=== PATIENT | male | born 1955 | race Caucasian/White ===

== ENCOUNTER 2019-03-30 06:39 | Outpatient (CLI) | payer MEDICARE, MEDICAID ==
[2019-03-30] VITALS (9 sets, daily range): BP systolic 112–166; BP diastolic 64–86; Ht 188 cm; Wt 100.0 kg
[~2019-03-30] VITALS: Ht 188 cm; Wt 100.0 kg
--- NOTE | ~2019-03-30 | OP ---
PATIENT NAME: STORM WALDRON MEDICAL RECORD: [id number] :55 LOCATION:D.CAT ADMISSION DATE: SURGEON: RODNEY GALLEGOS MD DATE OF OPERATION: 03/30/2019 PROCEDURES: 1. PTCA stent LAD. 2. IFR LAD. 3. IFR left circumflex. 4. Left heart catheterization. 5. Selective coronary angiography. 6. Left ventriculogram. INDICATION: Unstable angina and coronary artery disease. PROCEDURE IN DETAIL: After informed consent was obtained and after a detailed description of the risks, benefits as well as alternative therapies, the patient elected to proceed with angiogram and angioplasty. The right radial area was prepped and draped in normal sterile fashion. Right radial artery was cannulated via modified Seldinger technique with placement of 6-Bermudian sheath. All catheters exchanged through this sheath. FINDINGS: Left ventriculogram was performed in standard 30-degree ANDRADE view, reveals good cardiac wall motion, ejection fraction estimated at 50%. SELECTIVE CORONARY ANGIOGRAPHY: 1. Left main is with no significant angiographic disease. 2. Left anterior descending has 75% stenosis throughout the mid vessel and IFR was abnormal. 3. Left circumflex has what appears to be a 70% stenosis in the proximal vessel; however, IFR was normal. 4. Right coronary artery has 95% stenosis throughout the mid and distal vessel. PTCA STENT OF THE LAD: The stent used was a 3.0 x 38 and 3.5 x 18 both Steven stents. Result was 0% residual stenosis. OVERALL IMPRESSION: Successful percutaneous transluminal coronary angioplasty stent of the left anterior descending going from 75% initial stenosis to 0% residual. PLAN: PTCA stent of the RCA in the near future. During the case, the patient went into atrial fibrillation, hence he will stay overnight due to the new onset of the atrial fibrillation for pharmacotherapy for the atrial fibrillation. TRANSINT:[id number] Voice Confirmation ID: [id number] DOCUMENT ID: [id number] RODNEY GALLEGOS MD CC: [id number] DICTATION DATE: 03/30/19 1020 CLINIC DIRECTOR: 03/30/19 1054 [facility] [address] [place] [address]
--- NOTE | ~2019-03-30 | HEMODYNAMI ---
PATIENT:STORM WALDRON MEDICAL RECORD: [id number] : 55 LOCATION:DJUNE ADMISSION DATE: 03/30/19 Generatedon:03/30/201910:21 Patient name: STORM WALDRON Patient #: [id number] SSN: [id number] : 1955 Date of study: 03/30/2019 Page: Of Hemodynamic Procedure Report Patient Data Patient Demographics Procedure consent was obtained First Name: STORM Gender: Male Last Name: VANITA : 1955 Patient #: [id number] Age: 64 year(s) Race: SSN: [id number] Additional ID: [id number] Contact details [address]: [address] [place] [address] State: [place] City: [place] Zip code: [address] Past Medical History Performed procedures and imaging results Date Procedure Procedure Results Comments 11/20/2018 Stress testing Positive->Intermediate with SPECT MPI risk Allergies Allergen Reaction Date Comments Reported Other allergy 03/30/2019 n Admission Admission Data Admission Date: 03/30/2019 Admission Time: 6:39 Arrival Date: 03/30/2019 Arrival Time: 0:00 Admit Source: Other Insurance Payor: Medicare [facility] #: [id number] Height (in.): 72 BSA: 2.23 (m2) Height (cm.): 182.88 BMI: 30.11 (kg/m2) Weight (lbs.): 222 Weight (kg.): 100.7 Lab Results Lab Result Date: 03/30/2019 Lab Result Time: 0:00 Biochemistry Name Units Result Min Max BUN mg/dl 22 --(----)-* 7 18 Creatinine mg/dl 1.8 --(----)-* 0.6 1.3 eGFR ml/min 40 *-(----)-- 90 120 NONAFRICAN CBC Name Units Result Min Max Hematocrit % 39.1 -*(----)-- 42 54 Hemoglobin g/dl 13 -*(----)-- 13.5 17.5 Procedure Procedure Types Cath Procedure Diagnostic Procedure [facility] w/Coronaries FFR/IVUS FFR Initial FFR Additional Sedation Charges Moderate Sedation up to 30 minutes PCI Procedure Coronary Stent Coronary Stent Initial Hemochron ACT Test Procedure Description Procedure Date Procedure Date: 03/30/2019 Procedure Start Time: 9:47 Procedure End Time: 10:19 Procedure Staff Name Function Aldo Barker MD Performing Physician Meagan Murphy RT Monitor Vilma Reyes RT Monitor Abelino Joshi RN Nurse Doris Davey RT Scrub Procedure Data Cath Procedure Fluoroscopy Diagnostic fluoroscopy Total fluoroscopy Time: 11 time: 11 min min Diagnostic fluoroscopy Total fluoroscopy dose: dose: 1238 mGy 1238 mGy Contrast Material Contrast Material Type Amount (ml) Isovue 300 142 Entry Location Entry Primary Successful Side Size Upsize Upsize Entry Closure [place]on ccessful Closure Location (Fr) 1 (Fr) 2 (Fr) Remarks Device Remarks Radial Right 6 Fr Mechanical artery Short Compression Estimated blood loss: 10 ml Diagnostic catheters Device Type Used For End Catheter Placement DIAGNOSTIC [place] 110cm 5 Procedure Fr catheter ([id number]) Procedure Complications No complications Procedure Medications Medication Administration Route Dosage 0.9% NaCl I.V. 100 ml/hr Oxygen etCO2 Nasal cannula 2 l/min Heparin Flush Bag added to field 2 bags (1000units/500ml NS) Lidocaine 2% added to field 20 Radial Cocktail added to field 1 syringe (Verapamil 2mg/Nitro 400mcg/Heparin 1500units) Versed I.V. 2 mg Fentanyl I.V. 100 mcg Radial Cocktail I.A. 1 syringe (Verapamil 2mg/Nitro 400mcg/Heparin 1500units) Versed I.V. 1 mg Lopressor I.V. 5 mg Heparin Bolus I.V. 4000 units Integrilin (Bolus I.V. 9 ml 2mg/ml) Integrilin (Bolus wasted 1 ml 2mg/ml) Plavix P.O. 600 mg Hemodynamics Rest BSA: 2.23 (m2) HGB: 13 (g/dl) O2 Consumption: Estimated: 256.66 (ml/min) O2 Cons umption indexed: Estimated:115.09 (ml/min/m) Heart Rate: 66 (bpm) Snapshots Pre Cath Intra NCS Post Cath Vital Signs Time Heart Resp SPO2 etCO2 NIBP (mmHg) Rhythm Pain Sedation Rate (ipm) (%) (mmHg) Status Level (bpm) 9:23:36 65 18 96 0 150/92(109) NSR 0 (11) 10(A) , No pain 9:27:54 62 18 95 29.3 139/86(101) NSR 0 (11) 10(A) , No pain 9:32:10 63 19 94 30 147/83(119) NSR 0 (11) 10(A) , No pain 9:36:28 63 20 95 13.5 151/91(121) NSR 0 (11) 10(A) , No pain 9:40:45 61 18 93 27.8 138/90(118) NSR 0 (11) 10(A) , No pain 9:45:03 62 19 93 32.3 127/79(110) NSR 0 (11) 10(A) , No pain 9:49:15 64 19 92 34.5 141/80(107) NSR 0 (11) 10(A) , No pain 9:53:24 105 20 90 33 102/77(97) A-Fib 0 (11) 9(A) , No pain 9:57:30 96 19 89 30.1 114/71(89) A-Fib 0 (11) 9(A) , No pain 10:01:38 87 21 91 27.8 113/77(94) A-Fib 0 (11) 9(A) , No pain 10:05:48 94 19 91 30.1 109/72(93) A-Fib 0 (11) 9(A) , No pain 10:09:56 94 21 92 28.6 129/73(99) A-Fib 0 (11) 10(A) , No pain 10:14:10 105 23 93 26.3 105/78(99) A-Fib 0 (11) 10(A) , No pain 10:18:14 101 22 92 22.5 115/81(101) A-Fib 0 (11) 10(A) , No pain Medications Time Medication Route Dose Verified Delivered Reason Not es Effectiveness by by 9:22:21 0.9% NaCl I.V. 100 Abelino Abelino Per physician ml/hr Adi Joshi RN RN 9:22:31 Oxygen etCO2 2 l/min Abelino Abelino for low 02 sats Nasal Adi Joshi cannula RN RN 9:22:43 Heparin Flush added 2 bags Abelino Abelino used for Bag to Adi Joshi procedure (1000units/500ml field RN RN NS) 9:22:53 Lidocaine 2% added 20ml Abelino Abelino for local to vial Lorigan Lorigan anesthetic field RN RN 9:23:04 Radial Cocktail added 1 Abelino Abelino used for (Verapamil to syringe Lorigan Lorigan procedure 2mg/Nitro field RN RN 400mcg/Heparin 1500units) 9:45:53 Versed I.V. 2 mg Abelino Abelino for sedation Adi Joshi RN RN 9:46:02 Fentanyl I.V. 100 mcg Abelino Abelino for sedation Adi Joshi RN RN 9:48:58 Radial Cocktail I.A. 1 Abelino Aldo for (Verapamil syringe Lorigan Tauth MD vasodilation 2mg/Nitro RN 400mcg/Heparin 1500units) 9:49:07 Versed I.V. 1 mg Abelino Abelino for sedation Adi Joshi RN RN 9:51:48 Lopressor I.V. 5 mg Abelino Abelino for arrhythmia Adi Joshi RN RN 10:01:01 Heparin Bolus I.V. 4000 Abelino Abelino for units Adi Joshi anticoagulation RN RN 10:01:17 Integrilin I.V. 9 ml Abelino Abelino for (Bolus 2mg/ml) Adi Joshi antiplatelet RN RN therapy 10:01:28 Integrilin wasted 1 ml Abelino Abelino to sharp's (Bolus 2mg/ml) Adi Joshi RN RN 10:15:31 Plavix P.O. 600 mg Abelino Abelino for Adi Joshi antiplatelet RN RN therapy Procedure Log Time Note 8:55:58 Informed consent obtained and on chart 9:03:39 Arrival Date: 03/30/2019 12:00:00 AM 9:03:45 Insurance Payor : Medicare 9:04:00 Admit Source: Other 9:04:11 Patient Height : 72 inches 9:04:25 Patient Weight : 222 lbs 9:09:08 Abelino Joshi RN sent for patient. Start room use. 9:11:45 Lab Result : Hematocrit 39.1 % 9:11:45 Lab Result : eGFR NONAFRICAN 40 ml/min 9:11:45 Lab Result : BUN 22 mg/dl 9:11:45 Lab Result : Creatinine 1.8 mg/dl 9::45 Lab Result : Hemoglobin 13 g/dl 9:12:37 Patient allergic to Other allergypcn 9:13:14 Diagnostic Cath Status : Elective 9:15:05 Procedure Status Elective Heart Cath (OP). 9:15:12 Time tracking: Regular hours (M-F 7:00 - 5:00) 9:15:20 Plan of Care:Hemodynamics will remain stable., Cardiac rhythm will remain stable., Comfort level will be maintained., Respiratory function will remain adequate., Patient/ family verbilizes understanding of procedure., Procedure tolerated without complication., Recovers from procedure without complications.. 9:15:30 Patient received from Pre/Post Procedure Room to CCL 1 Alert and oriented. Tansferred to table in Supine position. 9:16:00 Warm blankets applied, and michael hugger turned on for patient comfort. 9:16:00 Correct patient and procedure confirmed by team. 9:16:02 ECG and BP/O2 sat monitors applied to patient. 9:16:14 ACC Patient presents with Stable Angina CCS Anginal Class 2--Slight limitation of ordinary activity. 9:17:03 ACCPatient has been prescribed/administered the following anti-anginal medication within the last 2 weeks: Beta Pretty, Calcium Channel Blockers 9:22:21 0.9% NaCl 100 ml/hr I.V. was administered by Abelino Joshi RN; Per physician; Verbal order read back and verified. 9:22:28 Vital chart was started 9::31 Oxygen 2 l/min etCO2 Nasal cannula was administered by Abelino Joshi RN; for low 02 sats; Verbal order read back and verified. 9:22:31 Baseline sample Acquired. 9:22:39 Rhythm: sinus rhythm 9:22:41 Full Disclosure recording started 9::43 Heparin Flush Bag (1000units/500ml NS) 2 bags added to field was administered by Abelino Joshi RN; used for procedure; Verbal order read back and verified. 9::43 - 9:22:49 H&P Date Dictated: 03/30/2019 H&P Addendum completed by physician on day of procedure. (MUST COMPLETE FOR ALL OUTPATIENTS), New H&P dictated by physician.. 9:22:51 Pre-procedure instructions explained to patient. 9:22:52 Pre-op teaching completed and patient verbalized understanding. 9::53 Lidocaine 2% 20ml vial added to field was administered by Abelino Joshi RN; for local anesthetic; Verbal order read back and verified. 9:22:56 Family in patients room. 9:22:59 Patient NPO since Midnight. 9:23:04 Radial Cocktail (Verapamil 2mg/Nitro 400mcg/Heparin 1500units) 1 syring e added to field was administered by Abelino Joshi RN; used for procedure; Verbal order read back and verified. 9:23:07 Is the patient allergic to Iodine/contrast media? No. 9:23:08 Was the patient premedicated? Yes 9:23:14 Is patient on blood thinner?No 9:23:20 Patient diabetic? No. 9:23:25 ----Pre-sedation anethsthesia assessment.---- 9:23:30 Previous problem with sedation/anesthesia? No ? 9:23:32 Snore? Yes 9:23:36 Sleep apnea? No 9:23:39 Deviated septum? No 9:23:50 Opens mouth fully? Yes 9:23:52 Sticks out tongue? Yes 9:26:08 Airway obstruction? Yes COPD/ 2 LITERS O2 AT HOME 9:26:13 Pre procedure: right dorsailis pedis pulse 2+ Normal; easily identifiable; not easily obliterated 9:26:16 Patient pain scale 0/10 ?. 9:26:22 IV patent on arrival in left hand with 0.9% NaCl at [facility]. 9:26:26 Lab results completed and on chart. 9::52 Stress Test: yes; abnormal INFERIOR 9:26:56 Right Radial & Right Groin area was prepped with chlora-prep and draped in sterile fashion 9::57 Alarms reviewed by R. N. 9::57 Sharps counted by scrub and verified by R.N. 9:29:16 Risk of Mortality: 0.1 9:29:21 Risk of blood transfusion: 0.2 9:29:26 Risk of STEFAN: 2.0 9:29:43 Use device set Radial Dx or PCI 9:29:45 ACIST Syringe (33956) opened to sterile field. 9:29:46 Medline Cath Pack ([id number]) opened to sterile field. 9:29:47 Bag Decanter (2002) opened to sterile field. 9:29:48 ACIST Hand Control (68388) opened to sterile field. 9:29:49 ACIST Manifold (82486) opened to sterile field. 9:29:50 Tegaderm 4 x 4 (1626W) opened to sterile field. 9:29:50 MBrace Wrist Support ([id number]) opened to sterile field. 9:29:53 EMERALD Guide Wire (677-159) opened to sterile field. 9:29:54 SHEATH 6FR RAIN (4131267) opened to sterile field. 9:34:07 Zero performed for pressure channel P1 9:34:31 Physician paged 9:40:07 Physician responded to page. 9:44:22 Physician arrived 9:44:24 --------ALL STOP TIME OUT------ 9:44:26 Final Timeout: patient, procedure, and site verified with staff and physician. All members of the team are in agreement. 9:44:33 Right Radial & Right Groin site verified by team. 9:44:41 Fire Safety Assessment: A--An alcohol-based skin anteseptic being used preoperatively., C--Open oxygen or nitrous oxide is being used., D--An ESU, laser, or fiber-optic light is being used. 9:44:48 Physical assessment completed. ASA score P 2 - A patient with mild systemic disease as per Aldo Barker MD. 9:44:58 3b) 30-44 Moderately reduced kidney function. 9:45:07 Maximum allowable contrast dose (3.7 X eGFR X 0.75)111 ml. 9:45:15 Sedation plan: IV Moderate Sedation Medication:Versed, Fentanyl 9:45:53 Versed 2 mg I.V. was administered by Abelino Joshi RN; for sedation; Verbal order read back and verified. 9:46:02 Fentanyl 100 mcg I.V. was administered by Abelino Joshi RN; for sedation; Verbal order read back and verified. 9:46:57 Procedure started. 9:47:15 Local anesthetic to right radial artery with Lidocaine 2% by Aldo Barker MD.INITIAL ACCESS ONLY 9:48:00 A 6 Fr Short sheath was inserted into the Right Radial artery 9:48:49 A DIAGNOSTIC [place] 110cm 5 Fr catheter ([id number]) was advanced over the wire and used for Procedure. 9:48:58 Radial Cocktail (Verapamil 2mg/Nitro 400mcg/Heparin 1500units) 1 syring e I.A. was administered by Aldo Barker MD; for vasodilation; Verbal order read back and verified. 9:49:07 Versed 1 mg I.V. was administered by Abelino Joshi RN; for sedation; Verbal order read back and verified. 9:49:19 LV gram done using ANDRADE 9:50:16 EF : 55 % 9:50:19 Injector settings: Ml/sec: 5, Volume: 15, 9:50:54 LCA angiography performed. 9:51:04 Injector settings: Ml/sec: 3, Volume: 6, 9:51:48 Lopressor 5 mg I.V. was administered by Abelino Joshi RN; for arrhythmia; Verbal order read back and verified. 9:51:57 RCA angiography performed. 9:52:07 Injector settings: Ml/sec: 3, Volume: 6, 9:52:39 [place] Verrata Plus pressure wire (21342K) opened to sterile field. 9:52:40 INFLATOR Merit BasixCompak (VW8904) opened to sterile field. 9:53:20 GUIDE 6FR XBLAD 3.5 catheter ([id number]) opened to sterile field. 9:53:31 Catheter removed. 9:53:33 Proceeding to intervention. 9:53:51 6 Fr XBLAD3.5 guide catheter was inserted over the wire 9:54:07 FFR/IFR wire advanced. 9:55:36 Wire advanced across lesion. 9:59:13 mLAD lesion measured at 0.87 with IFR 9:59:25 Wire redirected to CIRC. 10:01:01 Heparin Bolus 4000 units I.V. was administered by Abelino Joshi RN; for anticoagulation; Verbal order read back and verified. 10:01:17 Integrilin (Bolus 2mg/ml) 9 ml I.V. was administered by Abelino Joshi RN; for antiplatelet therapy; Verbal order read back and verified. 10:01:28 Integrilin (Bolus 2mg/ml) 1 ml wasted was administered by Abelino Joshi RN; to sharp's; Verbal order read back and verified. 10:03:37 mCirc lesion measured at 1.02 with IFR 10:05:11 Wire removed. 10:06:06 AN Endymed 190 CM WIRE IS USED. 10:06:39 Pre PCI Site: [place] mLAD has 75% stenosis. 10:07:05 Wire advanced across lesion. 10:08:38 Place stent Inflation Number: 1 A LACEY RX 3.0 x 38 stent ([id number]) was prepped and advanced across the Mid LAD . The stent was deployed at 13 LEIGHANN for 0:00 (min:sec) . 10:09:07 Stent catheter was removed intact over wire. 10:10:21 Place stent Inflation Number: 2 A LACEY RX 3.5 x 18 stent ([id number]) was prepped and advanced across the Mid LAD . The stent was deployed at 13 LEIGHANN for 0:00 (min:sec) . 10:10:29 Stent catheter was removed intact over wire. 10:11:17 ACT drawn and resulted at 317 seconds. (normal therapeutic range 180-24 0 seconds). 10:11:24 Wire removed. 10:11:25 Guide catheter removed. 10:11:33 Procedure ended.(Physican Out) 10:11:47 ZEPHYR REGULAR TR BAND (794066) opened to sterile field. 10:12:04 Sheath removed intact; hemostasis achieved with Mechanical Compression to the Right Radial artery. 10:12:59 Contrast amount:Isovue 300 142ml. 10:13:18 Fluoroscopy time 11.00 minutes. 10:13:23 Flurop Dose total: 1238 10:13:23 Fluoroscopy dose: 1238 mGy 10:13:29 Dose Area Product 33771 mGy/cm. 10:13:35 Maximum allowable dose exceeded? Yes. 10:13:37 Sharps counted by scrub and verified by R.N. 10:13:40 [place] band inflated with 0cc of air. 10:13:43 Insertion/operative site no bleeding no hematoma. 10:13:52 Post right radial artery:stable 10:13:54 Post Procedure Pulses reassessed and unchanged 10:14:06 Post-procedure physical assessment completed. ASA score P 2 - A patient with mild systemic disease as per Aldo Barker MD. 10:14:10 Post procedure rhythm: atrial fibrillation 10:14:35 Estimated blood loss: 10 ml 10:14:40 Post procedure instruction explained to patient.Patient verbalizes understanding. 10:14:43 Patient needs reinforcement of post procedure teaching. 10:15:31 Plavix 600 mg P.O. was administered by Abelino Joshi RN; for antiplatelet therapy; Verbal order read back and verified. 10:16:43 Procedure type changed to Cath procedure, Diagnostic procedure, LHC, C w/Coronaries, FFR/IVUS, FFR Initial, FFR Additional, Sedation Charges, Moderate Sedation up to 30 minutes, PCI procedure, Coronary Stent, Coronary Stent Initial, Hemochron ACT Test 10:16:45 Procedure and supply charges have been captured, reviewed, submitted an d are correct. 10:17:59 Procedure Complication : No complications 10:18:23 Vital chart was stopped 10:18:27 [facility] Findings: MVD- PCI performed (see procedure note) 10:18:33 Operative report dictated upon procedure completion. 10:18:34 See physician's report for complete and final results. 10:18:47 Report given to Pre/Post Procedure Room. 10:18:52 Patient transfered to Pre/Post Procedure Room with Stretcher. 10:19:36 Procedure ended. 10:19:36 Full Disclosure recording stopped 10:19:46 ACC-PCI Only Patient was given prescriptions, or instructed by Aldo Barker MD to start/continue the following medications upon discharge: Plavix 10:19:48 End room use (Document Last) Intervention Summary Intervention Notes Time ActionType Lesion and Equipment Used Action# Pressure Duration Attributes 10:08:38 Place stent Mid LAD LACEY RX 3.0 x 1 13 00:00 38 stent ([id number]) 10:10:21 Place stent Mid LAD LACEY RX 3.5 x 2 13 00:00 18 stent ([id number]) Device Usage Item Name Manufacture Quantity Catalog Hospital Part Current Minimal Lot# / Number Charge Number Stock Stock Serial# Code ACIST Syringe Acist 1 91590 533868 632825 [id number] 20 (40446) Medical Systems Inc Medline Cath Medline 1 [id number] 53164 867468 5 Pack ([id number]) Bag Decanter Microtek 1 2001S 845664 23578 774179 5 (2001S) Medical Inc. ACIST Hand Acist 1 74976 332157 947539 067025 5 Control Medical (52680) Systems Inc ACIST Manifold Acist 1 77751 025572 291266 015895 5 (29720) Medical Systems Inc Tegaderm 4 x 4 3M 1 1626W 233932 600031 212888 5 (1626W) MBrace Wrist Advanced 1 140-0250-00 950701 43904 413185 5 Support Vascular ([id number]) Dynamics EMERALD Guide Cardinal 1 502-455 566855 167710 510489 5 Wire (502455) Health SHEATH 6FR Cardinal 1 4784792 889133 8576282 549514 5 RAIN (1358104) Health DIAGNOSTIC Terumo 1 405013 500206 631614 630347 5 [place] 110cm 5 Fr catheter (513626) [place] 1 68861D 124858 [id number] 659960 5 Verrata Plus pressure wire (11304U) INFLATOR Merit Merit 1 GW0460 893635 543575 700886 15 [facility]bitsSt[facility] Hospital[facility]rain[facility] Medical (PZ0976) GUIDE 6FR Cardinal 1 [id number] 428093 338014 039368 10 XBLAD 3.5 Health catheter ([id number]) LACEY RX 3.0 x Medtronic 1 [id number] 407867 6089792 268861 5 [id number] 38 stent ([id number]) LACEY RX 3.5 x Medtronic 1 [id number] 065925 2040261 365148 5 [id number] 18 stent ([id number]) ZEPHYR REGULAR Cardinal 1 791788 693183 6488432 387996 5 TR BAND Health (713841) Signature Audit [place] Stage Time Signature Unsigned Intra-Procedure 03/30/2019 Vilma 10:20:21 AM Amy RT(R) (CV) Intra-Procedure 03/30/2019 Abelino 10:20:56 AM Adi BEDOYA Intra-Procedure 03/30/2019 Aldo Barker 10:21:21 AM [facility] [address] [place] [address]
[2019-03-30] MEDS ORDERED: IPRAT-ALBUT 0.5-3 ML UPD (06:58)
[2019-03-30] MEDS ORDERED: NORVASC10 MG PO (06:58)
[2019-03-30] MEDS ORDERED: BYSTOLIC10 MG PO (06:58)
[2019-03-30] MEDS ORDERED: FLOVENT HFA 22012 GM INH (06:59)
[2019-03-30] MEDS ORDERED: COZAAR100 MG PO (06:59)
[2019-03-30 07:54] LABS: ANION GAP 13.6 mmol/L (8-16); CALCIUM 8.5 mg/dL (8.5-10.1); CARBON DIOXIDE 25.4 mmol/L (21.0-32.0); CREATININE - SERUM 1.8 mg/dL (0.6-1.3); LDL-HDL RATIO 3.6 ratio (1.5-3.5)
[2019-03-30 07:58] LABS: BASOPHILS 0.5 % (0-2); EOSINOPHILS 7.4 % (0-7); HEMATOCRIT 39.1 % (42.0-54.0); IMMATURE GRANULOCYTES 0.5 % (0-5); LYMPHOCYTES 20.5 % (15-50); MCH 28.9 pg (26.0-34.0); MCHC 33.2 g/dL (31.0-37.0); MCV 86.9 fL (80.0-100.0); MEAN PLATELET VOLUME 9.8 fL (7.4-10.4); MONOCYTES 11.1 % (2-11); PLATELET COUNT 220 10x3/uL (130-400); RDW 13.6 % (11.5-14.5); WBC 7.3 10x3/uL (4.8-10.8)
--- NOTE | 2019-03-30 10:27 | NUR ---
PATIENT ARRIVED TO ROOM 7, PLACED ON CM. VSS, A FIB NOTED ON MONITOR. NO C/O PAIN, NUMBNESS, OR TINGLING. PATIENT PLACED ON 3L NC. RIGHT RADIAL SITE WITH Z BAND AND WRIST IMMOBILIZER IN PLACE SHOWS NO S/S OF BLEEDING OR HEMATOMA. WILL CONTINUE TO MONITOR.
--- NOTE | 2019-03-30 10:40 | NUR ---
PATIENT AWAKE, SITTING UP IN BED. VSS ON ROOM AIR. NO C/O PAIN, NUBMNESS, OR TINGLING. GIVEN SANDWICH AND WATER PER REQUEST, NO N/V. PO RHYTHMOL GIVEN ORDERED. RIGHT Z BAND IN PLACE, NO S/S OF BLEEDING OR HEMATOMA. WILL CONTINUE TO MONITOR.
--- NOTE | 2019-03-30 11:10 | NUR ---
PATIENT AWAKE, SITTING UP IN BED. VSS ON ROOM AIR. NO C/O PAIN, NUMBNESS, OR TINGLING. RIGHT Z BAND IN PLACE, NO S/S OF BLEEDING OR HEMATOMA. NO N/V. WILL CONTINUE TO MONITOR.
--- NOTE | 2019-03-30 11:40 | NUR ---
PATIENT INTERMITTENTLY RESTING, VSS ON ROOM AIR. PHYSICIAN AT BEDSIDE TO UPDATE PATIENT AND FAMILY. NO C/O PAIN, NUMBNESS, OR TINGLING. NO N/V. WILL ADMIT PATIENT TO PCU FOR MONITORING OF A FIB.
--- NOTE | 2019-03-30 12:10 | NUR ---
PATIENT RESTING, FAMILY PRESENT AT BEDSIDE. RIGHT RADIAL SITE IS CDI, NO S/S OF BLEEDING OR HEMATOMA. NO C/O PAIN, NUMBNESS, OR TINGLING. VSS ON ROOM AIR, PATIENT IN A FIB ON MONITOR. WILL CONTINUE TO MONITOR PATIENT.
--- NOTE | 2019-03-30 12:40 | NUR ---
RIGHT RADIAL SITE IS CDI, NO S/S OF BLEEDING OR HEMATOMA. NO C/O PAIN, NUMBNESS, OR TINGLING. VSS ON ROOM AIR, A FIB ON MONITOR. NO N/V. PATIENT RESTING.
--- NOTE | 2019-03-30 12:45 | NUR ---
REPORT CALLED TO ERIC BEDOYA, ALL QUESTIONS ANSWERED.
--- NOTE | 2019-03-30 13:00 | NUR ---
PATIENT BACK TO ROOM AT THIS TIME. IV INTACT. NO COMPLAINTS OR SIGNS OF DISTRESS. VS STABLE. RIGHT RADIAL BAND ON. WILL MONITOR PULSE AND BLEEDING. ASSESSMENT COMPLETE, CALL LIGHT WITHIN REACH.
--- NOTE | 2019-03-30 13:00 | NUR ---
PATIENT TRANSPORTED TO ROOM 2125, ALL BELONGINGS WITH PATIENT, FAMILY UPDATED REGARDING TRANSFER. BEDSIDE REPORT GIVEN TO CHANTE BEDOYA, ALL QUESTIONS ANSWERED, PATIENT LEFT WITH RN AT BEDSIDE.
--- NOTE | 2019-03-30 13:30 | NUR ---
TRIED TO RELEASE AIR OUT OF RADIAL BAND. IMMEDIATLY STARTED BLEEDING SO REPLACED AIR AT THIS TIME. PATIENT IN BED WITH EYES CLOSED RESTING QUIETLY. VS STABLE. CALL LIGHT WITHIN REACH.
--- NOTE | 2019-03-30 14:30 | NUR ---
PATIENT IN BED WITH EYES CLOSED RESTING QUIETLY. DID NOT GIVE RHYTHMOL BC HR IS LOWER 50'S AT THIS TIME. WILL CONTINUE TO MONITOR. CALL LIGHT WITHIN REACH.
--- NOTE | 2019-03-30 16:00 | NUR ---
PATIENT REFUSED PRAVACHOL.
--- NOTE | 2019-03-30 17:00 | NUR ---
RELEASED HALF OF AIR OUT OF RADIAL BAND. NO BLEEDING. WILL CONTINUE TO MONITOR. CALL LIGHT WITHIN REACH.
--- NOTE | 2019-03-30 18:27 | NUR ---
REMOVED RADIAL BAND AND BANDAIDE PLACED. IV INTACT. NO COMPLAINTS. TELE SB 54. PATIENT SITTING UP IN BED WITH CALL LIGHT WTIHIN REACH.
--- NOTE | 2019-03-30 19:15 | NUR ---
RECEIVED REPORT, WILL ASSUME CARE OF PT, VISITING WITH FAMILY, DENIES ANY NEEDS, BED IS LOW, SRX2, CALL LIGHT IN REACH, WILL CONTINUE PLAN OF CARE
[2019-03-31] VITALS: BP 128/70
[2019-03-31 04:30] VITALS: BP 141/71
[2019-03-31 08:01] VITALS: BP 141/79
--- NOTE | 2019-03-31 08:32 | NUR ---
PT TOOK OWN HOME MEDICATIONS, ONLY GAVE PT PLAVIX AND RHYTHMOL. PT DENIES ANY NEEDS AT THIS TIME. CALL LIGHT IN REACH, NAD NOTED, WILL CONITNUE TO MONITOR.
[2019-03-31] MEDS ORDERED: PLAVIX75 MG PO (11:02)
[2019-03-31] MEDS ORDERED: PROPAFENONE HC225 MG PO (11:03)
--- NOTE | 2019-03-31 11:22 | NUR ---
OFFERED PT THE FLU VACCINE AND PT STATED THAT HE NEVER GETS ONE AND DID NOT WANT ONE TODAY.
--- NOTE | 2019-03-31 11:46 | NUR ---
PROVIDED VERBAL AND WRITTEN DISCHARGE TEACHING TO PT, WHO VERBALIZED UNDERSTANDING REGARDING TEACHING. D/C LT FA IV WITH CATHETER TIP INTACT. REMOVED HEART MONITOR AND TAKEN TO METALLURGICAL ENGINEERING TECHNICIAN. PT WHEELED DOWN VIA WHEELCHAIR, WITH CALL BELONGINGS, ACCOMPANIED BY FAMILY.
== END 2019-03-31 12:19 | disposition home or self-care (01) ==
LOC: D.CATH 06:39 → D.M2 13:05 → D.CATH 03-31 12:19
PROVIDERS: ATTEND Internal Medicine Interventional Cardiology
DX: I25.110 Atherosclerotic heart disease of native coronary artery with unstable angina pectoris (principal); R07.89 Other chest pain; I10 Essential (primary) hypertension
CPT/HCPCS: 93458; 93571; 93572; C9600

== ENCOUNTER 2019-04-02 07:17 | Outpatient (CLI) | payer MEDICARE, MEDICAID ==
[~2019-04-02] VITALS: Ht 188 cm; Wt 100.0 kg
--- NOTE | ~2019-04-02 | HP ---
PATIENT: STORM SULLIVAN MEDICAL RECORD: [id number] ACCOUNT: [id number] LOCATION:RAFITA [facility]ierrez[facility]06 : 55 ADMISSION DATE: 04/02/19 PCP: BELLO LEOS HISTORY AND PHYSICAL EXAMINATION DATE OF SERVICE: 04/02/2019 DIAGNOSES: 1. Angina. 2. Coronary artery disease. 3. Recent percutaneous transluminal coronary angioplasty stent to left anterior descending with concomitant disease of right coronary artery. 4. Hypertension. 5. Hyperlipidemia. 6. Paroxysmal atrial fibrillation. HISTORY OF PRESENT ILLNESS: Mr. Sullivan presented with unstable angina. Last week, found to have disease of the LAD and RCA, underwent successful PTCA stent of the LAD, went into atrial fibrillation. Atrial fibrillation resolved with propafenone. For now, brought back for PTCA stent of the RCA. PHYSICAL EXAMINATION: CONSTITUTIONAL/GENERAL APPEARANCE: Well nourished, well developed, appears stated age. EYES: Lids and conjunctivae noninjected. No discharge. No pallor. ENT: Lips within normal limit. No cyanosis. No pallor. NECK: Carotid arteries, bilateral normal upstroke. No bruits. No thrills. No jugular venous pressure or distention. CERVICAL LYMPH NODES: Nontender. Nonenlarged. THYROID: Not enlarged. No nodules. CARDIOVASCULAR: Precordial exam, nondisplaced. No heaves or pericardial thrills. Rate and rhythm, regular. Heart sounds, normal S1, normal S2. No S3, no gallop, no rub. Systolic murmur, not heard. Diastolic murmur, not heard. RESPIRATORY: Respiratory effort, unlabored. Normal curvature. No thoracic deformity. No chest wall tenderness. Percussion, resonant. Auscultation, clear. No wheezes, no rales, no rhonchi. ABDOMEN: Soft, nondistended, nontender. No abdominal pain, no vomiting and normal appetite. MUSCULOSKELETAL: No joint tenderness, normal gait, normal tone. SKIN: Warm and dry. REVIEW OF SYSTEMS: The patient reports easy bruising but reports no swollen glands. The patient reports no fever, no night sweats, no significant weight gain, no significant weight loss. No significant exercise tolerance. The patient reports no dry eyes, no irritation, no vision change. Patient reports no difficulty hearing and no ear pain. Patient reports no frequent nose bleeds or nose and sinus problems. Patient reports on arm pain on exertion. No shortness of breath while lying down. No history of heart murmur. Patient reports no cough, no wheezing or coughing up blood. Patient reports no abdominal pain, no vomiting. Normal appetite. No diarrhea and not vomiting blood. No nausea and no constipation. Patient reports no incontinence. No difficulty urinating. No hematuria. No increased frequency. Patient reports no muscle aches. No weakness, no arthralgias, no back pain. No swelling of the extremities. Patient reports no abnormal mole, no jaundice, no rashes. Reports no loss of consciousness. No weakness and no numbness. No seizures, dizziness, HISTORY AND PHYSICAL [id number] VANITA,STORM or headaches. The patient reports no depression, no sleep disturbance, feeling safe in a relationship and no alcohol abuse. Patient reports on fatigue. Reports no runny nose or sinus pressure. No itching, no hives, and no frequent sneezing. OVERALL IMPRESSION: Anginal symptomatology with known disease of the right coronary artery. We will proceed with transcatheter revascularization of the right coronary artery. TRANSINT:[id number] Voice Confirmation ID: [id number] DOCUMENT ID: [id number] RODNEY GALLEGOS MD CC: [id number] DICTATION DATE: 04/02/19 121 CONTACT CENTER DIRECTOR: 04/02/19 1330 REG [facility] [address] [place] [address]
--- NOTE | ~2019-04-02 | OP ---
PATIENT NAME: STORM WALDRON MEDICAL RECORD: [id number] :55 LOCATION:RAFT[facility] Gutierrez[facility]06 ADMISSION DATE: SURGEON: RODNEY GALLEGOS MD DATE OF OPERATION: 04/02/2019 PROCEDURE: 1. PTCA stent RCA. 2. Selective coronary angiography. INDICATION: Angina and coronary artery disease. PROCEDURE IN DETAIL: After informed consent was obtained and after a detailed description of risks, benefits as well as alternative therapies, the patient elected to proceed with angiogram and angioplasty. The right femoral area was prepped and draped in normal sterile fashion. Right femoral artery was cannulated via modified Seldinger technique with placement of 6-Occitan sheath. All catheters exchanged through this sheath. FINDINGS: The right coronary has 2 areas of 90% stenosis. This was addressed with a 2.25 x 38 mm Eden and a 2.5 x 26 mm Steven. Result was 0% residual stenosis. OVERALL IMPRESSION: Successful percutaneous transluminal coronary angioplasty stent of the right coronary artery going from 90% initial stenosis to 0% residual. TRANSINT:[id number] Voice Confirmation ID: [id number] DOCUMENT ID: [id number] RODNEY GALLEGOS MD CC: [id number] DICTATION DATE: 04/02/19 1210 FREIGHT ASSOCIATE: 04/02/19 1527 REG [facility] [address] [place] [address]
--- NOTE | ~2019-04-02 | HEMODYNAMI ---
PATIENT:STORM WALDRON MEDICAL RECORD: [id number] : 55 LOCATION:RAFITA [facility]ON ADMISSION DATE: 04/02/19 Generatedon:04/02/201912:13 Patient name: STORM WALDRON Patient #: [id number] SSN: [id number] : 1955 Date of study: 04/02/2019 Page: Of Hemodynamic Procedure Report Patient Data Patient Demographics Procedure consent was obtained First Name: STORM Gender: Male Last Name: VANITA : 1955 Patient #: [id number] Age: 64 year(s) Race: SSN: [id number] Additional ID: [id number] Contact details [address]: [address] [place] [address] State: [place] City: [place] Zip code: [address] Past Medical History Allergies Allergen Reaction Date Comments Reported Other allergy 03/30/2019 pcn Other allergy 04/02/2019 ASA, PCN Admission Admission Data Admission Date: 04/02/2019 Admission Time: 7:17 Arrival Date: 04/02/2019 Arrival Time: 0:00 Room #: SHAILA Height (in.): 74 BSA: 2.26 (m2) Height (cm.): 187.96 BMI: 28.31 (kg/m2) Weight (lbs.): 220.46 Weight (kg.): 100 Current Diagnosis Diagnosis Description Stable angina Lab Results Lab Result Date: 04/02/2019 Lab Result Time: 0:00 Biochemistry Name Units Result Min Max BUN mg/dl 22 --(----)-* 7 18 Creatinine mg/dl 1.7 --(----)-* 0.6 1.3 eGFR ml/min 43 *-(----)-- 90 120 NONAFRICAN CBC Name Units Result Min Max Hematocrit % 41 -*(----)-- 42 54 Hemoglobin g/dl 13.9 --(*---)-- 13.5 17.5 Procedure Procedure Types Cath Procedure Diagnostic Procedure Sedation Charges Moderate Sedation up to 15 minutes PCI Procedure Coronary Stent Coronary Stent Initial Hemochron ACT Test Procedure Description Procedure Date Procedure Date: 04/02/2019 Procedure Start Time: 11:52 Procedure End Time: 12:11 Procedure Staff Name Function Aldo Barker MD Performing Physician Sandip Stone RT Potato Chip Frier Meagan Murphy RT Monitor Daniella Fuen RT Scrub Tootie Mejias RN Nurse Procedure Data Cath Procedure Fluoroscopy Diagnostic fluoroscopy Total fluoroscopy Time: 6.7 time: 6.7 min min Diagnostic fluoroscopy Total fluoroscopy dose: dose: 1153 mGy 1153 mGy Contrast Material Contrast Material Type Amount (ml) Isovue 300 82 Entry Location Entry Primary Successful Side Size Upsize Upsize Entry Closure Succes sful Closure Location (Fr) 1 (Fr) 2 (Fr) Remarks Device Remarks Femoral Right 6 Fr Exoseal artery Short Estimated blood loss: 10 ml Procedure Complications No complications Procedure Medications Medication Administration Route Dosage Oxygen etCO2 Nasal cannula 2 l/min Lidocaine 2% added to field 20 Heparin Flush Bag added to field 2 bags (1000units/500ml NS) 0.9% NaCl I.V. 100 ml/hr Versed I.V. 2 mg Fentanyl I.V. 100 mcg Versed I.V. 2 mg Heparin Bolus I.V. 4000 units Hemodynamics Rest BSA: 2.26 (m2) HGB: 13.9 (g/dl) O2 Consumption: Estimated: 259.56 (ml/min) O2 Co nsumption indexed: Estimated:114.85 (ml/min/m) Heart Rate: 65 (bpm) Snapshots Pre Cath Intra NCS Post Cath Vital Signs Time Heart Resp SPO2 etCO2 NIBP (mmHg) Rhythm Pain Sedation Rate (ipm) (%) (mmHg) Status Level (bpm) 11:42:08 63 22 93 24.5 150/85(128) NSR 0 (11) 10(A) , No pain 11:46:24 62 19 96 26.7 145/84(124) NSR 0 (11) 10(A) , No pain 11:50:40 61 19 94 30.4 122/75(98) NSR 0 (11) 10(A) , No pain 11:54:48 57 19 94 24.5 114/74(93) NSR 0 (11) 9(A) , No pain 11:58:56 61 18 93 29.7 113/65(89) NSR 0 (11) 9(A) , No pain 12:02:59 62 20 93 27.4 116/76(99) NSR 0 (11) 9(A) , No pain 12:07:05 64 22 94 14.1 124/74(98) NSR 0 (11) 10(A) , No pain 12:11:15 58 22 96 28.9 114/67(92) NSR 0 (11) 10(A) , No pain Medications Time Medication Route Dose Verified Delivered Reason Notes Effectiveness by by 11:46:48 Oxygen etCO2 2 Aldo Aldo used for Nasal l/min Lucero Barker MD procedure cannula 11:46:59 Lidocaine 2% added 20ml Aldo Lado for local to vial Lucero Barker MD anesthetic field 11:47:05 Heparin Flush added 2 Aldo Aldo used for Bag to bags Lucero Barker MD procedure (1000units/500ml field NS) 11:47:13 0.9% NaCl I.V. 100 Aldo Carlson Per physician ml/hr Lucero Barker MD 11:49:50 Versed I.V. 2 mg Aldo Sommers for sedation Lucero Mejias RN 11:49:59 Fentanyl I.V. 100 Aldo Sommers for sedation mcg Lucero Mejias RN 11:53:25 Versed I.V. 2 mg Aldo Sommers for sedation Lucero Mejias RN 11:54:01 Heparin Bolus I.V. 4000 Aldo Sommers for verif ied units Lucero Mejias RN anticoagulation with dr barker Procedure Log Time Note 11:30:12 Sandip Stone RT(R) sent for patient. Start room use. 11:32:24 Informed consent obtained and on chart 11:32:59 Procedure Status Elective Heart Cath (OP). 11:33:00 Time tracking: Regular hours (M-F 7:00 - 5:00) 11:33:02 Plan of Care:Hemodynamics will remain stable., Cardiac rhythm will remain stable., Comfort level will be maintained., Respiratory function will remain adequate., Patient/ family verbilizes understanding of procedure., Procedure tolerated without complication., Recovers from procedure without complications.. 11:34:21 H&P Date Dictated: 04/02/2019 New H&P dictated by physician.. 11:34:31 Patient allergic to Other allergyASA, PCN 11:35:21 Lab Result : BUN 22 mg/dl 11:35:21 Lab Result : Creatinine 1.7 mg/dl 11:35:21 Lab Result : eGFR NONAFRICAN 43 ml/min 11:35:21 Lab Result : Hemoglobin 13.9 g/dl 11:35:21 Lab Result : Hematocrit 41 % 11:35:33 Stress Test: no; N/A BRING BACK PCI 11:36:07 Patient Weight : 220.46 lbs 11:36:11 Patient Height : 74 inches 11:36:17 Arrival Date: 04/02/2019 12:00:00 AM 11:36:23 Current Diagnosis : Stable angina 11:39:22 Patient received from Pre/Post Procedure Room to CCL 2 Alert and oriented. Tansferred to table in Supine position. 11:39:23 Warm blankets applied, and michael hugger turned on for patient comfort. 11:39:23 Correct patient and procedure confirmed by team. 11:39:24 ECG and BP/O2 sat monitors applied to patient. 11:39:26 Pre-procedure instructions explained to patient. 11:39:26 Pre-op teaching completed and patient verbalized understanding. 11:39:28 Family in patients room. 11:39:30 Patient NPO since Midnight. 11:39:31 Is the patient allergic to Iodine/contrast media? No. 11:39:32 Is patient on blood thinner?Yes 11:39:35 ACC The patient was administered the following blood thiners within the last 24 hours: ACCPlavix 11:39:37 Patient diabetic? No. 11:39:40 Previous problem with sedation/anesthesia? No ? 11:39:41 Snore? Yes 11:39:42 Sleep apnea? No 11:39:43 Deviated septum? No 11:39:44 Opens mouth fully? Yes 11:39:45 Sticks out tongue? Yes 11:39:56 Airway obstruction? Yes COPD/ 2L OF O2 AT NIGHT 11:39:59 Dentures? No ? 11:40:20 Pre procedure: right dorsailis pedis pulse 1+ Palpable, but thready & weak; easily obliterated 11:40:22 Patient pain scale 0/10 ?. 11:40:28 IV patent on arrival in left forearm with 0.9% NaCl at [facility]. 11:40:30 Lab results completed and on chart. 11:40:33 Risk of Mortality: .5 11:40:36 Risk of blood transfusion: .7 11:40:39 Risk of STEFAN: 1.8 11:40:42 Right groin area was prepped with chlora-prep and draped in sterile fashion 11:40:43 Alarms reviewed by R. N. 11:40:43 Sharps counted by scrub and verified by R.N. 11:40:55 Vital chart was started 11:40:59 Full Disclosure recording started 11:41:09 Use device set CATH PACK 11:41:11 ACIST Syringe (49204) opened to sterile field. 11:41:11 ACIST Hand Control (56788) opened to sterile field. 11:41:11 ACIST Manifold (99753) opened to sterile field. 11:41:12 Medline Cath Pack ([id number]) opened to sterile field. 11:41:12 Bag Decanter (2002S) opened to sterile field. 11:41:12 EMERALD Guide Wire (502-720) opened to sterile field. 11:41:29 SHEATH 6FR Reubens (LKX023) opened to sterile field. 11:41:29 INFLATOR Merit BasixCompak (JV3218) opened to sterile field. 11:41:29 CHOICE PT Extra Support 182cm wire ([id number]) opened to sterile field. 11:46:46 Rhythm: sinus rhythm 11:46:48 Oxygen 2 l/min etCO2 Nasal cannula was administered by Aldo Barker MD; used for procedure; Verbal order read back and verified. 11:46:52 Baseline sample Acquired. 11:46:59 Lidocaine 2% 20ml vial added to field was administered by Aldo Barker MD; for local anesthetic; Verbal order read back and verified. 11:47:05 Heparin Flush Bag (1000units/500ml NS) 2 bags added to field was administered by Aldo Barker MD; used for procedure; Verbal order read back and verified. 11:47:13 0.9% NaCl 100 ml/hr I.V. was administered by Aldo Barker MD; Per physician; Verbal order read back and verified. 11:48:49 --------ALL STOP TIME OUT------ 11:48:50 Final Timeout: patient, procedure, and site verified with staff and physician. All members of the team are in agreement. 11:48:50 Right groin site verified by team. 11:48:53 Fire Safety Assessment: A--An alcohol-based skin anteseptic being used preoperatively., C--Open oxygen or nitrous oxide is being used., D--An ESU, laser, or fiber-optic light is being used. 11:48:56 Physical assessment completed. ASA score P 2 - A patient with mild systemic disease as per Aldo Barker MD. 11:49:03 3b) 30-44 Moderately reduced kidney function. 11:49:06 Maximum allowable contrast dose (3.7 X eGFR X 0.75)119 ml. 11:49:09 Sedation plan: IV Moderate Sedation Medication:Versed, Fentanyl 11:49:50 Versed 2 mg I.V. was administered by Tootie Mejias RN; for sedation; Verbal order read back and verified. 11:49:59 Fentanyl 100 mcg I.V. was administered by Tootie Mejias RN; for sedation; Verbal order read back and verified. 11:52:05 Procedure started. 11:52:10 Zero performed for pressure channel P1 11:52:16 GUIDE 6FR HS II SH catheter ([id number]) opened to sterile field. 11:52:21 Local anesthetic to right femoral artery with Lidocaine 2% by Aldo Barker MD.INITIAL ACCESS ONLY 11:53:00 A 6 Fr Short sheath was inserted into the Right Femoral artery 11:53:16 6 Fr HS2 SH guide catheter was inserted over the wire 11:53:25 Versed 2 mg I.V. was administered by Tootie Mejias RN; for sedation; Verbal order read back and verified. 11:54:01 Heparin Bolus 4000 units I.V. was administered by Tootie Mejias RN; for anticoagulation; verified with dr barker Verbal order read back and verified. 11:54:44 Pre PCI Site: [place] mRCA has 90% stenosis. 11:54:58 CHOICE ES 182 wire advanced. 11:55:58 UNABLE TO CROSS LESION 11:56:12 ASAHI MINAMO 300 WIRE ADVANCED 11:59:58 UNABLE TO CROSS LESION WITH WIRE 12:00:03 CHOICE PT Floppy J 300cm guide wire ([id number]) opened to sterile field. 12:00:19 CHOICE ES 300 wire advanced. 12:01:02 Wire advanced across lesion. 12:01:15 Inflate balloon Inflation number: 1 A EMERGE OTW 2.0 x 15 balloon ([id number]) was prepped and advanced across the Dist RCA , then inflated to 15 LEIGHANN for 0:00 (min:sec) . 12:01:51 Inflation number: 1 The EMERGE OTW 2.0 x 15 balloon ([id number]) was reinflated across the Mid RCA , to 21 LEIGHANN for 0:00 (min:sec) . 12:01:56 Balloon removed over the wire. 12:02:33 ACT drawn and resulted at OUT OF RANGE seconds. (normal therapeutic range 180-240 seconds). 12:03:37 Place stent Inflation Number: 2 A LACEY RX 2.25 x 38 stent ([id number]) was prepped and advanced across the Dist RCA . The stent was deployed at 13 LEIGHANN for 0:00 (min:sec) . 12:03:51 Stent catheter was removed intact over wire. 12:05:18 Place stent Inflation Number: 2 A LACEY RX 2.5 x 26 stent ([id number]) was prepped and advanced across the Mid RCA . The stent was deployed at 13 LEIGHANN for 0:00 (min:sec) . 12:05:22 Stent catheter was removed intact over wire. 12:05:43 Wire removed. 12:05:44 Guide catheter removed. 12:05:54 EXOSEAL 6Fr (EX600) opened to sterile field. 12:06:03 Sheath removed intact; hemostasis achieved with Exoseal to the Right Femoral artery. 12:06:15 Procedure ended.(Physican Out) 12:06:39 Fluoroscopy time 06.70 minutes. 12:06:43 Flurop Dose total: 1153 12:06:43 Fluoroscopy dose: 1153 mGy 12:06:47 Dose Area Product 95365 mGy/cm. 12:06:51 Contrast amount:Isovue 300 82ml. 12:06:53 Maximum allowable dose exceeded? No. 12:06:54 Sharps counted by scrub and verified by R.N. 12:06:56 Post-op/insertion site Right Femoral artery dressed using a 4 x 4 and Tegaderm. 12:07:00 Post-procedure physical assessment completed. ASA score P 2 - A patient with mild systemic disease as per Aldo Barker MD. 12:07:38 Post procedure rhythm: unchanged. 12:07:42 Estimated blood loss: 10 ml 12:07:44 Post procedure instruction explained to patient.Patient verbalizes understanding. 12:07:44 Patient needs reinforcement of post procedure teaching. 12:07:50 Post right femoral artery:stable, soft, clean and dry 12:08:14 Procedure type changed to Cath procedure, Diagnostic procedure, Sedation Charges, Moderate Sedation up to 15 minutes, PCI procedure, Coronary Stent, Coronary Stent Initial, Hemochron ACT Test 12:09:14 Procedure and supply charges have been captured, reviewed, submitted and are correct. 12:09:17 Procedure Complication : No complications 12:09:21 [facility] Findings: MVD- PCI performed (see procedure note) 12:09:23 Operative report dictated upon procedure completion. 12:09:23 See physician's report for complete and final results. 12:11:40 Vital chart was stopped 12:11:43 Report given to Pre/Post Procedure Room. 12:11:45 Patient transfered to Pre/Post Procedure Room with Bed. 12:11:46 Procedure ended. 12:11:46 Full Disclosure recording stopped 12:11:52 End room use (Document Last) Intervention Summary Intervention Notes Time ActionType Lesion and Equipment Used Action# Pressure Duration Attributes 12:01:15 Inflate Dist RCA EMERGE OTW 2.0 1 15 00:00 balloon x 15 balloon ([id number]) 12:01:51 Reinflate Mid RCA EMERGE OTW 2.0 1 21 00:00 balloon x 15 balloon ([id number]) 12:03:37 Place stent Dist RCA LACEY RX 2.25 x 2 13 00:00 38 stent ([id number]) 12:05:18 Place stent Mid RCA LACEY RX 2.5 x 2 13 00:00 26 stent ([id number]) Device Usage Item Name Manufacture Quantity Catalog Number Hospital Part Current M inimal Lot# / Charge Number Stock Stock Serial# Code ACIST Syringe Acist 1 99612 786554 822107 894824 2 0 (59292) [employer] Inc ACIST Hand Acist 1 12117 455008 192874 019040 5 Control Medical (56886) [employer] ACIST Manifold Acist 1 26424 870344 203883 618419 5 (99124) Medical Systems Inc Medline Cath Medline 1 [id number] 453997 71167 428028 5 Pack ([id number]) Bag Decanter Microtek 1 2001S 743087 73475 458654 5 (2001S) Medical Inc. EMERALD Guide Cardinal 1 502-455 197411 058862 471969 5 Wire (502455) Health SHEATH 6FR Terumo 1 IHH352 929635 526013 222499 4 0 Reubens (UZL419) INFLATOR Merit Merit 1 RB0845 317808 959583 930737 1 5 [employer] Medical (YF4927) CHOICE PT [place] 1 [id number] 696563 552058 034941 5 Extra Support Scientific 182cm wire ([id number]) GUIDE 6FR HS Medtronic 1 [id number] 360598 02109 365416 1 II SH catheter ([id number]) CHOICE PT [place] 1 [id number] 928987 738497 691165 5 Floppy J 300cm Scientific guide wire ([id number]) EMERGE OTW 2.0 [place] 1 [id number] 618425 606302 392466 5 x 15 balloon Scientific ([id number]) LACEY RX 2.25 x Medtronic 1 [id number] 316041 8854917 927527 5 [id number] 38 stent ([id number]) LACEY RX 2.5 x Medtronic 1 [id number] 103467 4368296 662398 5 [id number] 26 stent ([id number]) EXOSEAL 6Fr Cardinal 1 EX600 928318 743574 190181 1 0 (EX600) Health Signature Audit [place] Stage Time Signature Unsigned Intra-Procedure 04/02/2019 Meagan Murphy 12:12:19 PM RT(R) Intra-Procedure 04/02/2019 Tootie Mejias RN 12:12:40 PM Intra-Procedure 04/02/2019 Aldo Barker 12:13:10 PM Signatures Performing Physician : Signature : Aldo Barker MD Date : Time : Monitor : Meagan Murphy Signature : RT Date : Time : Nurse : Buffie Mejias RN Signature : Date : Time : [address] [place] [address]
[~2019-04-02 07:17] MED LIST: BYSTOLIC10 MG PO; COZAAR100 MG PO; FLOVENT HFA 22012 GM INH; IPRAT-ALBUT 0.5-3 ML UPD; NORVASC10 MG PO; PLAVIX75 MG PO; PROPAFENONE HC225 MG PO
[2019-04-02 07:48] VITALS: BP 153/86; Ht 188 cm; Wt 100.0 kg
[2019-04-02 08:08] LABS: BASOPHILS 0.4 % (0-2); EOSINOPHILS 3.4 % (0-7); HEMOGLOBIN 13.9 g/dL (13.5-17.5); IMMATURE GRANULOCYTES 0.8 % (0-5); LYMPHOCYTES 9.6 % (15-50); MCH 28.8 pg (26.0-34.0); MCHC 33.9 g/dL (31.0-37.0); MCV 84.9 fL (80.0-100.0); MEAN PLATELET VOLUME 9.2 fL (7.4-10.4); MONOCYTES 4.2 % (2-11); NEUTROPHILS 81.6 % (40-80); PLATELET COUNT 218 10x3/uL (130-400); RBC 4.83 10x6/uL (4.20-6.10); RDW 13.3 % (11.5-14.5); WBC 8.6 10x3/uL (4.8-10.8)
[2019-04-02 08:20] LABS: ANION GAP 14.2 mmol/L (8-16); CALCIUM 8.8 mg/dL (8.5-10.1); CARBON DIOXIDE 23.1 mmol/L (21.0-32.0); CREATININE - SERUM 1.7 mg/dL (0.6-1.3); POTASSIUM - SERUM 4.3 mmol/L (3.5-5.1)
--- NOTE | 2019-04-02 12:25 | NUR ---
PT RECEIVED VIA STRETCHER FROM AN/SQQ 89(V)15 SONAR SYSTEM JOURNEYMAN FOR RECOVERY. PT SLEEPING BUT VERBALLY AROUSABLE. PT DENIES PAIN OR DISCOMFORT. PT PLACED ON EQUINE PHARMACOLOGY TECHNICIAN AND O2 VIA NC AT 2L. HR SB AT 59, BP 127/72, RR 22, SAT 93. IV PATENT INFUSING VIA ORDERS. R GROIN W 6FR EXOCELE, DRESSING CDI NO BLEEDING OR S/S HEMATOMA NOTED. LEG PINK AND WARM, PEDAL PULSES PALPABLE. PT INSTRUCTED TO KEEP HEAD ON PILLOW AND LEG STRAIGHT, HE VERBALIZED UNDERSTANDING. CALL LIGHT IN REACH, DAUGHTER AT BEDSIDE.
[2019-04-02] MEDS ORDERED: PRAVACHOL20 MG PO (12:43)
--- NOTE | 2019-04-02 12:45 | NUR ---
PT RESTING COMFORTABLY, SIPS OF SPRITE GIVEN. HR 58, BP 108/69, RR 18, SAT 92. R GROIN SOFT, DRESSING CDI NO BLEEDING OR S/S HEMATOMA NOTED. PEDAL PULSES PALPABLE. CALL LIGHT IN REACH, PT DENIES NEEDS AT THIS TIME.
--- NOTE | 2019-04-02 13:42 | NUR ---
PT RESTING W EYES CLOSED, DENIES PAIN OR NEEDS AT THIS TIME. R GROIN SOFT, DRESSING CDI NO BLEEDING OR S/S HEMATOMA NOTED. HR 57, BP 115/70, RR 21, SAT 89 ON 2L/NC. O2 CHANGED TO 4L/NC. CALL LIGHT IN REACH, DAUGHTER AT BS
--- NOTE | 2019-04-02 14:30 | NUR ---
PT RESTING W/O COMPLAINTS. R GROIN REMAINS SOFT, NO BLEEDING OR S/S HEMATOMA NOTED. LEG PINK AND WARM, PEDAL PULSES PALPABLE. VSS. CALL LIGHT IN REACH, DAUGHTER AT BS.
--- NOTE | 2019-04-02 15:00 | NUR ---
R GROIN REMAINS SOFT, NO BLEEDING OR HEMATOMA NOTED. VSS. HOB ELEVATED SLIGHTLY. SANDWICH TRAY SERVED. PT DENIES PAIN OR OTHER NEEDS AT THIS TIME. CALL LIGHT IN REACH, DAUGHTER REMAINS AT BS
--- NOTE | 2019-04-02 15:50 | NUR ---
DISCHARGE INSTRUCTIONS REVIEWED W PT AND DAUGHTER, BOTH VERBALIZED UNDERSTANDING. IV REMOVED W CATH INTACT, MONITORS AND O2 REMOVED. R GROIN REMAINS SOFT, NO BLEEDING OR SWELLING NOTED. PT UP TO DRESS FOR DISCHARGE 1555 PT TO BR VIA WC, VOIDING W/O DIFFICULITY.
--- NOTE | 2019-04-02 15:59 | NUR ---
PT DISCHARGED VIA WC TO DAUGHTER WAITING IN PRIVATE VEHICLE. PT HAD ALL BELONGINGS AND DISCHARGE PAPERWORK.
== END 2019-04-02 16:00 | disposition home or self-care (01) ==
LOC: D.CATH 07:17 → D.CLR 07:17 → D.CATH 09:30
PROVIDERS: ATTEND Internal Medicine Interventional Cardiology
DX: I25.110 Atherosclerotic heart disease of native coronary artery with unstable angina pectoris (principal)
CPT/HCPCS: 93454; C9600